=== PATIENT | male | born 1945 | race Two or more races ===

== ENCOUNTER 2023-01-12 22:25 | Emergency (ER) | payer MEDICARE ==
[~2023-01-12] VITALS: Ht 170.2 cm; Wt 80.4 kg
[2023-01-13] MEDS ORDERED: AMOX500T3 PO ×2 (01:28)
[2023-01-13] MEDS ORDERED: AUG875T PO (01:28)
[2023-01-13] MEDS ORDERED: ACETAMINOPHEN 500 MG TAB PO ONE (01:30)
[2023-01-13 01:52] VITALS: BP 137/75; PULSE 86; RESP 18; TEMP 98.7; O2SAT 97
== END 2023-01-13 01:59 | disposition home or self-care (01) ==
LOC: ER 22:33
DX: H66.91 Otitis media, unspecified, right ear (principal); Z88.8 Allergy status to other drugs, medicaments and biological substances